=== PATIENT | male | born 1945 | race Caucasian/White ===

== ENCOUNTER 2016-07-27 09:05 | Inpatient (IN) | payer MEDICARE, BC ==
--- NOTE | ~2016-07-27 | BMI ---
[facility] Nutrition Therapy DATE: 07/28/16 Patient: GENOVEVA BEASLEY Physician: BRENDA Address: [address] [place] [address] ROAD Room/Bed: [address] [place] [address], Zip: [place] [address] Admit Date: 07/27/16 Date of : [birth year] Height: 6 0 Weight: 360 163.6 HIGH BMI NOTE: DX: No new H&P available; 71 y/o male admitted with failed components L TKR ANTHROPOMETRICS: Ht: 72", Wt: 163.6 kg, BMI: 48 DIET: Consistent carb INTERVENTION: + healthy heart, meds/fluids per MD RECOMMENDATIONS: Consider adding healthy heart restriction to current diet in order to promote a gradual weight loss towards a healthy BMI range. Respectfully, Ely Casillas RD, LD [facility] cc: client file
--- NOTE | ~2016-07-27 | DS ---
Unit #: [id number] #: [id number] Patient: GENOVEVA SARMIENTO [id number] [address] [place], [place] [address] [id number] MR#: [id number] NAME: GENOVEVA SARMIENTO ROOM: 45 Age: 71 Sex: M Admission Date: 07/27/2016 : 1945 Discharge Date: 07/28/2016 Attending Physician: Fredy Lester M.D. DISCHARGE SUMMARY ADMITTING DIAGNOSIS Loose tibial prosthesis. DISCHARGE DIAGNOSIS Loose tibial prosthesis. HOSPITAL COURSE On 07/27/2016, Mr. Sarmiento underwent a left total knee revision. He tolerated the procedure well. He was transported to the 4th floor where he underwent physical therapy, medical management and anticoagulation therapy. He is doing well and is ready to be discharged. DISPOSITION Stable. DISCHARGE Discharge home with home health. MEDICATIONS ON DISCHARGE 1. [place] 10/325. 2. Coumadin 6 mg p.o. daily. FOLLOWUP INSTRUCTIONS Mr. Sarmiento is going to be discharged home with home health. The patient is on Coumadin for DVT prophylaxis and INR is to be drawn every Wednesday and in addition to tomorrow. Please call the results in to [phone]. Physical therapy is to be done for active range of motion, strengthening and progressive ambulation. Followup appointment with Dr. Lester is in six weeks. Please call our office for that appointment date and time. Dictated by... Mark Ponce for Dary العلي/chip TD: 07/31/2016 05:42 JOB #: [id number] Unit #: [id number] #: [id number] Patient: GENOVEVA SARMIENTO DISCHARGE SUMMARY X Mere Wilkinson DISCHARGE SUMMARY
--- NOTE | ~2016-07-27 | OR ---
Unit #: [id number] #: [id number] Patient: GENOVEVA BEASLEY [id number] [address] [place], [place] [address] [id number] MR#: [id number] NAME: GENOVEVA BEASLEY ROOM: 452 Date of Procedure: 07/27/2016 Admission Date: 07/27/2016 Surgeon: Fredy Lester M.D. : 1945 Attending Physician: Fredy Lester M.D. OPERATIVE REPORT PREOPERATIVE DIAGNOSIS Loose and painful tibial component, left total knee. POSTOPERATIVE DIAGNOSIS Loose and painful tibial component, left total knee. PROCEDURE PERFORMED Revision of tibia, femur, and insert. ASSISTANTS Mere Wilkinson and Isaiah Bermudez. ANESTHESIA Adductor canal block plus general. ESTIMATED BLOOD LOSS About 250. OPERATIVE INDICATIONS This is a 71-year-old with loosening of the tibial component. The patient has significant pain with walking and weightbearing. Workup for infection was negative and is brought to the hospital today for revision of total knee. DESCRIPTION OF PROCEDURE The patient was brought to the operating room, given an adductor canal block plus 3 g of Ancef. Ancef will be continued postop surgery. The leg was prepped and draped. After this was done, the tourniquet was inflated to 300. The previous skin incision was opened, subcutaneous dissected away and a medial arthrotomy was performed. Cultures were obtained. dissection around the posterior medial corner, but despite this, we could not sublux the tibia out from underneath the femoral component. The tibia was grossly loose and we removed polyethylene and despite all this, we were unable to sublux it anterior. After attempting this multiple times, we elected to remove the femur, so that the to the femoral component which was loosened and removed and unable to remove the tibial component The tibia was reamed up to a 14 x 75 and the femur was reamed up to a 16 x 75. We then used the conical reamer from the tibia and the broaches for the MBT sleeve. We used up to a 45. The tibia was sized at a 4. We then used the conical reamers for the [place] femoral sleeve and broaches used up to a size 40. The trial was assembled and Unit #: [id number] #: [id number] Patient: GENOVEVA BEASLEY the knee was reduced. We found we needed a 10 mm insert to give appropriate stability. We used a posterior stabilized insert. After this was done, the patella was inspected and it was found to be well fixed. The real components were opened and assembled. The knee was irrigated and dried and then the tibia was inserted first cementing under the tray only. The femur was then inserted cementing under the femoral component only. The real 10 mm insert was applied. The knee was held in extension until the cement hardened. The rest of ropivacaine mixture was injected. The tourniquet was released. Hemostasis was obtained. Drain positioned and the wound was closed using 0 Ethibond in the arthrotomy, 0 and 2-0 Vicryl in the subcutaneous, and jamal for the skin. Sterile dressing was applied. The patient's general anesthetic was reversed. Once again, it was a insert. A size 4 tibial tray with 10 mm rotating platform posterior stabilized insert. [employer] assistant principal, Mere Wilkinson, was present throughout the entire case. Dictated by... Dary العلي/pal TD: 07/28/2016 04:53 JOB #: [id number] OPERATIVE REPORT X Fredy Lester MD X PROCEDURE OPERATIVE NOTE
[~2016-07-27 09:05] MED LIST: ACETAMINOPHEN325 MG PO; ALBUTEROL17 GM; ALBUTEROL17 GM INH; ALLEGRA; AMLODIPINE BESY10 MG PO; ASPIRIN81 MG PO; ASTELIN137 MCG; B6100 MG PO; CALCIPOTRIENE; CETIRIZINE HCL10 MG PO; CLOBETASOL; CLONIDINE HCL0.1 MG PO; COUMADIN; COUMADIN3 MG PO; ENBREL50 MG/M1 SQ; ETODOLAC400 M1 PO; FUROSEMIDE40 MG PO; HCTZ PO; HUMIRA40 MG/0.1 SQ; HUMULIN R100 U/ML SUBQ; HUMULIN R500 U/ML SUBQ; HYDRALAZINE HCL50 MG PO; LASIX; LIPITOR40 MG PO; LISINOPRIL; LODINE; LODINE400 M1 PO; LOPRESSOR; METFORMIN PO; METOPROLOL TART25 MG PO; MEVACOR; NASACORT AQ16.5 GM; NOVOLIN N100 U/ML; NOVOLIN R100 U/ML; OMEPRAZOLE40 M1 PO; PENTOXIFYLLINE PO; PERCOCET 10/31 UDTA1 PO; PLAVIX PO; PRILOSEC; RANITIDINE HCL300 MG PO; SINGULAIR; THERAPEUTIC SH177 ML; TRIAMCINOLONE AC1 GM TOP; VICODIN 5/500 T1 TAB; ZESTRIL40 MG PO
[2016-07-27] MEDS ORDERED: ASPIRIN EC81 M1 PO (09:47)
[2016-07-27] MEDS ORDERED: OMEPRAZOLE20 M2 PO (09:48)
[2016-07-27 10:17] LABS: INR 1.1; PROTHROMBIN TIME (PATIENT) 11.6 SECONDS (9.6-11.5)
[2016-07-28 03:45] LABS: INR 1.3; PROTHROMBIN TIME (PATIENT) 13.8 SECONDS (9.6-11.5)
[2016-07-28 03:51] LABS: HEMATOCRIT 37.1 % (38.0-50.0); HEMOGLOBIN 12.6 gm/dL (13.0-16.0)
[2016-07-28 04:03] LABS: BLOOD UREA NITROGEN 16 mg/dL (9-23); BUN/CREATININE RATIO 14.54; CALCIUM SERUM 8.4 mg/dL (8.4-10.2); CARBON DIOXIDE 25 mmol/L (22-31); CHLORIDE 103 mmol/L (100-111); CREATININE SERUM 1.1 mg/dL (0.6-1.4); GLOM FILT RATE Estimated ABOVE60 mL/min (>60); GLUCOSE FASTING 213 mg/dL (70-110); MAGNESIUM 1.8 mg/dL (1.6-3.0); SODIUM 137 mmol/L (135-145)
[2016-07-28] MEDS ORDERED: NORCO 10-325 TA1 TAB PO (13:50)
[2016-07-28] MEDS ORDERED: COUMADIN6 MG PO (13:51)
== END 2016-07-28 17:05 | disposition home health service (06) | DRG 467 ==
LOC: CSUR 09:05 → CPACUOF 14:34 → C4B 15:29
PROVIDERS: Nurse Practitioner; Orthopaedic Surgery
PROC: 0SPD09Z Removal of Liner from Left Knee Joint, Open Approach (ICD-10-PCS; 2016-07-27)
PROC: 0SPD0JZ Removal of Synthetic Substitute from Left Knee Joint, Open Approach (ICD-10-PCS; 2016-07-27)
PROC: 0SUW09Z Supplement Left Knee Joint, Tibial Surface with Liner, Open Approach (ICD-10-PCS; 2016-07-27)
PROC: 0SRD0J9 Replacement of Left Knee Joint with Synthetic Substitute, Cemented, Open Approach (ICD-10-PCS; principal; 2016-07-27 11:00)
DX: T84.033A Mechanical loosening of internal left knee prosthetic joint, initial encounter (principal); D62 Acute posthemorrhagic anemia; E11.40 Type 2 diabetes mellitus with diabetic neuropathy, unspecified; Z68.42 Body mass index [BMI] 45.0-49.9, adult; T84.84XA Pain due to internal orthopedic prosthetic devices, implants and grafts, initial encounter; Y79.2 Prosthetic and other implants, materials and accessory orthopedic devices associated with adverse incidents; I10 Essential (primary) hypertension; Z79.4 Long term (current) use of insulin; G47.33 Obstructive sleep apnea (adult) (pediatric); I25.10 Atherosclerotic heart disease of native coronary artery without angina pectoris; Z95.5 Presence of coronary angioplasty implant and graft; E78.5 Hyperlipidemia, unspecified; J45.909 Unspecified asthma, uncomplicated; E66.01 Morbid (severe) obesity due to excess calories; Z88.2 Allergy status to sulfonamides; L40.9 Psoriasis, unspecified
CPT/HCPCS: 80048; 82947; 83735; 85014; 85018; 85610; 87070; 87075; 87205; 94761; 97110; 97116; 97162; 97530; C1713; C1776; G8978-GP; G8979-GP; G8980-GP; J0131; J0171; J0330; J0690; J0735; J1650; J1815; J1885; J2250; J2270; J2405; J2710; J2795; J3010

== ENCOUNTER → 2016-08-20 | Outpatient (CLI) | payer MEDICARE, BC ==
[~2016-08-20] MED LIST changes: +ASPIRIN EC81 M1 PO; +COUMADIN6 MG PO; +NORCO 10-325 TA1 TAB PO; +OMEPRAZOLE20 M2 PO
[2016-08-20 12:18] LABS: PROTHROMBIN TIME (PATIENT) 21.3 SECONDS (9.6-11.5)
== END | disposition home or self-care (01) ==
LOC: CLAB 11:21
PROVIDERS: Orthopaedic Surgery
DX: Z51.81 Encounter for therapeutic drug level monitoring (principal); Z96.652 Presence of left artificial knee joint; Z79.01 Long term (current) use of anticoagulants
CPT/HCPCS: 36415; 85610

== ENCOUNTER → 2016-08-24 | Outpatient (CLI) | payer MEDICARE, BC ==
[2016-08-24 12:33] LABS: INR 1.6; PROTHROMBIN TIME (PATIENT) 17.4 SECONDS (9.6-11.5)
== END | disposition home or self-care (01) ==
LOC: CLAB 11:18
PROVIDERS: Orthopaedic Surgery
DX: Z51.81 Encounter for therapeutic drug level monitoring (principal); Z79.01 Long term (current) use of anticoagulants
CPT/HCPCS: 36415; 85610